=== PATIENT | male | born 1980 | race Caucasian/White ===

== ENCOUNTER 2025-05-19 12:11 | Emergency (ER) | payer MEDICARE, MEDICAID ==
[~2025-05-19] VITALS: Ht 177.8 cm; Wt 60.8 kg
[2025-05-19 12:51] LABS: BASO # 0.1 10*3/uL (0.0-0.1); BASO % 0.9 % (0.0-1.0); EOS # 0.2 10*3/uL (0.0-0.4); EOS % 2.7 % (1.0-4.0); MEAN CELL VOLUME 91.5 fl (80.0-94.0); MEAN CORPUSCULAR HGB 30.9 pg (27.0-31.0); MEAN PLATELET VOLUME 10.3 fl (9.6-12.3); MONO # 0.7 10*3/uL (0.1-1.0); MONO % 10.4 % (3.0-9.0); NEUT # 3.3 10*3/uL (2.3-7.9); NEUT % 48.1 % (47.0-73.0); NUCLEATED RED BLOOD CELL 0.0 % (0.0-0.0); NUCLEATED RED BLOOD CELL 0.0 10*3/uL (0.0-0.0); PLATELET COUNT AUTOMATED 296 10*3/uL (130-400); RED CELL DISTRI WIDTH 14.6 % (0-14.5)
[2025-05-19] MEDS ORDERED: IOHEXOL 300 MG/ML 100 ML VIAL IV ONE (12:55)
[2025-05-19 13:12] LABS: BUN 9 mg/dl (9-23); SGPT/ALT 16 U/L (5-49)
== END 2025-05-19 15:38 | disposition home or self-care (01) ==
LOC: ED 12:11
PROVIDERS: Student in an Organized Health Care Education/Training Program
DX: R10.31 Right lower quadrant pain (principal)